=== PATIENT | female | born 1970 | race African-American/Black ===

== ENCOUNTER 2019-05-11 06:22 | Inpatient (IN) | payer OTHER ==
[2019-05-07 12:44] VITALS: BMI 36.6
[2019-05-11] MEDS ORDERED: MIDAZOLAM HCL 2 MG/2 ML SINGLE DOSE VIAL ONE ×3 (07:43→08:40)
[2019-05-11] MEDS ORDERED: SODIUM CHLORIDE 0.9% P/F 10 ML VIAL IJ ONE ×2 (07:43→09:27)
[2019-05-11] MEDS ORDERED: BUPIVACAINE LIPOSOME/PF (EXPAREL) 266 MG/20 ML VIAL ONE (07:43)
[2019-05-11] MEDS ORDERED: BUPIVACAINE HCL/PF 2.5 MG/ML - 30 ML VIAL IJ ONE ×2 (07:52→09:27)
[2019-05-11] MEDS ORDERED: SUCCINYLCHOLINE CHLORIDE 200 MG/10 ML VIAL ONE (08:20)
[2019-05-11] MEDS ORDERED: PROPOFOL 20 ML ONE ×4 (08:20→08:48)
[2019-05-11] MEDS ORDERED: ePHEDrine SULFATE 50 MG/1 ML AMPULE ONE (08:32)
[2019-05-11] MEDS ORDERED: ONDANSETRON 4 MG/2 ML VIAL ONE ×2 (08:33→12:23)
[2019-05-11] MEDS ORDERED: VANCOMYCIN 1,000 MG VIAL (RESTRICTED TO ID ONLY) ONE (08:33)
[2019-05-11] MEDS ORDERED: ceFAZolin SODIUM 1 GM VIAL ONE (08:33)
[2019-05-11] MEDS ORDERED: DEXAMETHASONE SOD PHOSPHATE 4 MG/1 ML VIAL ONE (08:33)
[2019-05-11] MEDS ORDERED: TRANEXAMIC ACID 1000 MG/10 ML VIAL ONE (08:33)
[2019-05-11] MEDS ORDERED: KETOROLAC TROMETHAMINE 60 MG/2 ML VIAL ONE (09:27)
[2019-05-11] MEDS ORDERED: EPINEPHrine 1:1,000 1 MG/1 ML - 30ML VIAL (INJECTION) ONE (09:27)
[2019-05-11] MEDS ORDERED: MORPHINE SULFATE 10 MG/1 ML *VIAL ONE (09:28)
[2019-05-11] MEDS ORDERED: BENZOIN/ALOE VERA/STORAX/TOLU 58 ML BOTTLE ONE (10:41)
[2019-05-11] MEDS ORDERED: FAMOTIDINE 20 MG PREMIXED IVPB IVPB ONE (11:35)
--- NOTE | 2019-05-11 11:38 | PN ---
Progress Note (short form) - Note Progress Note: 48F s/p RIGHT total knee replacement POD #0. -Pain control: per anaesthesia team. -DVT PPx: -Chemical: ASA 81mg PO BID x 6 weeks. -Mechanical: DENYS's, SCD's. -Incentive spirometry q15 min. -PT/OT/Rehab, OOB. -WBAT RLE; full range of motion right knee. -Post-op Ancef x 3 doses. -f/u post-op TOV: 8 hours max. -f/u AM labs. -f/u drain output. -Diet as tolerated. -Care per medical hospitalist: Dr. Huddleston. -Discharge planning: f/u [facility] [place] [facility] 05/17/2019; call for appointment . -Will follow. Bipin Rebollar MD (Orthopaedic Surgery).
[2019-05-11] MEDS ORDERED: FAMOTIDINE 20 MG/50 ML IVPB 20 MG/50 ML MG IVPB ONE ×2 (11:39→11:42)
--- NOTE | 2019-05-11 11:39 | OP ---
Operative Note - Note: Operative Date: 05/11/19 Pre-Operative Diagnosis: Right knee DJD Operation: Right TKA Implants: [employer]. Femur - 4. Tibia - 5. Poly - 9mm, PS. Patella - 27mm, symmetric Surgeon: Bipin Rebollar Steam Drier Tender: César Rebollar Anesthesiologist/LIVESTOCK DEALER: Dylan Royal Anesthesia: Spinal Specimens Removed: Bone, soft tissue Estimated Blood Loss (mls): 0 Drains & Tubes with Location: 1 x deep HemoVac Fluid Volume Replaced (mls): 1,100 (Crystalloid) Operative Report Dictated: Yes
[2019-05-11] MEDS ORDERED: MAGNESIUM HYDROX 2400MG/30ML ORAL SUSPENSION 30 ML CUP PO PRN (11:40)
[2019-05-11] MEDS ORDERED: ONDANSETRON 4 MG/2 ML VIAL IVPUSH PRN ×2 (11:40)
[2019-05-11] MEDS ORDERED: PROMETHAZINE HCL 25 MG/1 ML VIAL IVPUSH PRN (11:40)
[2019-05-11] MEDS ORDERED: MAG HYDROX/AL HYDROX/SIMETH 30 ML UNIT-DOSE CUP PO PRN (11:40)
[2019-05-11] MEDS ORDERED: oxyCODONE HCL 5 MG TABLET PO PRN (11:40)
[2019-05-11] MEDS ORDERED: LACTATED RINGERS SOLUTION 1,000 ML IV SCH (11:45)
[2019-05-11] MEDS ORDERED: ACETAMINOPHEN 325 MG TABLET (FP) PO SCH (11:45)
[2019-05-11] MEDS ORDERED: PATIENT'S OWN MEDICATION (NON-FORMULARY) (Cholecalciferol (Vitamin D3) [Vitamin D3] 10,000 PO SCH (11:45)
[2019-05-11] MEDS ORDERED: PANTOPRAZOLE 40 MG TABLET (FP) ONE (11:52)
[2019-05-11] MEDS ORDERED: PANTOPRAZOLE 40 MG TABLET (FP) PO ONE ×2 (12:00→15:27)
[2019-05-11] MEDS ORDERED: MAG HYDROX/AL HYDROX/SIMETH 30 ML UNIT-DOSE CUP PO ONE ×2 (12:05→15:27)
--- NOTE | 2019-05-11 16:02 | HP ---
Admitting History and Physical - Admission Chief Complaint: right knee pain History Source: Patient Limitations to Obtaining History: No Limitations - Past Medical History ...LMP Comment: STATES SHE IS MENOPAUSAL MORE THAN 1 YR - Smoking History Smoking history: Former smoker Have you smoked in the past 12 months: No If you are a former smoker, when did you quit?: 10 YRS AGO - Alcohol/Substance Use Hx Alcohol Use: Yes (OCCASIONALY) Home Medications - Allergies Allergies/Adverse Reactions: Allergies Allergy/AdvReac Type Severity Reaction Status Date / Time No Known Allergies Allergy Verified 05/11/19 07:12 - Home Medications Home Medications: Ambulatory Orders Calcium Carbonate/Vitamin D3 [Calcium 600-Vit D3 2,500 Sftgl] 1 each PO DAILY Cholecalciferol (Vitamin D3) [Vitamin D3] 10,000 unit PO ASDIR 05/07/19 Cyanocobalamin (Vitamin B-12) [Vitamin B-12] 1,000 mcg PO DAILY 05/07/19 Diltiazem [Cardizem -] 30 mg PO DAILY 05/07/19 Hydrochlorothiazide 25 mg PO DAILY 05/07/19 Omeprazole 20 mg PO DAILY 05/07/19 Metoprolol Succinate [Toprol Xl] 50 mg PO DAILY 05/11/19 Oxycodone HCl 5 mg PO PRN PRN 05/11/19 Review of Systems - Review of Systems Constitutional: reports: No Symptoms Eyes: reports: No Symptoms HENT: reports: No Symptoms Neck: reports: No Symptoms Cardiovascular: reports: No Symptoms Respiratory: reports: No Symptoms Gastrointestinal: reports: No Symptoms Genitourinary: reports: No Symptoms Musculoskeletal: reports: Joint Pain Integumentary: reports: No Symptoms Neurological: reports: No Symptoms Endocrine: reports: No Symptoms Hematology/Lymphatic: reports: No Symptoms Psychiatric: reports: No Symptoms Pain Intensity: 6 Physical Examination Vital Signs: Vital Signs Temperature 98.4 F 05/11/19 13:40 Pulse Rate 53 L 05/11/19 14:00 Respiratory Rate 18 05/11/19 14:00 Blood Pressure 90/50 L 05/11/19 14:00 O2 Sat by Pulse Oximetry (%) 100 05/11/19 13:40 Constitutional: Yes: Well Nourished, No Distress, Calm Eyes: Yes: WNL HENT: Yes: WNL Neck: Yes: WNL Cardiovascular: Yes: WNL Respiratory: Yes: WNL Gastrointestinal: Yes: WNL Renal/: Yes: WNL Musculoskeletal: Yes: Joint Stiffness Extremities: Yes: WNL Edema: No Peripheral Pulses WNL: Yes Integumentary: Yes: WNL Wound/Incision: Yes: Clean/Dry, Well Approximated Neurological: Yes: WNL ...Motor Strength: WNL Psychiatric: Yes: WNL Assessment/Plan 48F s/p RIGHT total knee replacement POD #0. cont pain management. incentive spirometry. discussed potential side effects of pain meds with pt. -ID: empirically covered with Ancef -HTN: cont toprol XL, HCTZ -advance diet as tolerated -PT/OT/OOB -AM labs ordered -assessment and plan discussed with pt -hopefully will DC in 48 hours if stable
[2019-05-11] MEDS: CEFAZOLIN 2 GM/D5W 2 GM/50 ML ML IVPB SCH ×2 (16:48→23:49)
[2019-05-11] MEDS: ACETAMINOPHEN 325 MG TABLET (FP) PO SCH (20:24)
--- NOTE | 2019-05-11 20:34 | OP ---
DATE OF OPERATION: 05/11/2019 SURGEON: Bipin Rebollar M.D. PARTY PLAN DEALER: César Rebollar M.D. PREOPERATIVE DIAGNOSIS: Tricompartment osteoarthritis right knee. POSTOPERATIVE DIAGNOSIS: Tricompartment osteoarthritis right knee. OPERATION: Right total knee arthroplasty ([place] posterior stabilized cemented total knee arthroplasty). ANESTHESIA: Peripheral nerve block. SPINAL ANESTHESIA: Conscious sedation. ANTIBIOTICS GIVEN: 2 g Kefzol, 1 g vancomycin preoperative; 1 g Kefzol at the end of the procedure. OPERATION DETAILS: The patient was correctly identified, brought in operating room. Right lower extremity was prepped, free draped in the routine manner with Betadine scrub solution, wiped off with alcohol, DuraPrep applied. Timeout was called. Imaging was available for intraoperative evaluation. The knee was flexed to 45 degrees. Skin incision was made centrally over the patella, extended proximally and distally. The subcutaneous dissection was facilitated by incising straight down to the quadriceps mechanism and then raising a flap on the medial side to expose the vastus medialis. The epimysium of the vastus medialis was lifted with sharp dissection off the muscle belly, extending all the way around to the intramuscular septum and linea aspera of the femur, and the fibers of vastus medialis dissected off the intermuscular septum working in the acute angle of the stripping angle of the fibers. This freed the muscle completely. A Hohmann was placed in the space between the suprapatellar pouch and the quadriceps muscle, and then the suprapatellar pouch was incised opening up the entire suprapatellar region. The suprapatellar soft tissue fat was all excised, exposing the femoral bed. Once performed, the knee was flexed, externally rotated. Tricompartment osteoarthritis noted clearly. The cruciate ligaments were transected. A blunt Hohmann placed behind the tibia, leaving the entire tibia forwards. A sharp Hohmann placed on the left side, exposing the tibial bed without any difficulty. The extramedullary jig alignment system of [employer] was applied to the tibia. The tibia was cut to neutral. The femoral component was then approached at the starter drill, inserting the drill into the bone bed biasing on the medial side of the intracondylar notch, at the insertion point of the posterior cruciate ligament. The starter drill was seated into the medullary bone bed. The sword and jig device set to 4 degrees of varus and +2 mm joint line resection just because of the preoperative fixed flexion deformity. The jig settings and measurements which were a size 4 femur, size 5 tibial tray measured, and a size 27-mm patellar button utilized. The patella was cut from utilizing Tiffanie line from patella ligament to quadriceps tendon, and the appropriate jig applied to the bone bed with the lugholes redrilled without any difficulty. The femur was completed with all the jig cuts made with the appropriate device. The alignment and flexion extension gaps were even at 9 mm. The menisci were resected, Bovie was utilized to resect the meniscal structures which were completely intact, indicating this is primary osteoarthritis of the knee. Once the femoral cuts were made, the trialing was performed, excellent anatomical alignment achieved. Once we were satisfied with this, the bone bed was thoroughly lavaged with saline and pulse lavaged. The cementing was in 1 stage, tibia then femur then patella. All extraneous cement was removed. Repeating the sizes, was a size 4 femur, size 5 tibia, and size 27-mm patellar button, and a size 9 posterior stabilized polyethylene liner inserted, which gave full range of motion on the table, complete stability in extension and flexion both in the coronal and sagittal planes, and shock testing with Lomeli instrument placed in the medial space to measure the tension turned out to be perfectly well maintained. Patella tracking was normal with a negative thumb . Wounds were again thoroughly lavaged, all extraneous cement had been removed. Closure was fascia and retinacular tissue with 1 Vicryl, subcutaneous 1 and 2-0 Vicryl, skin 3-0 Monocryl with Steri-Strips and drainage, one 18-inch Hemovac into the subvastus bed. This was a non-muscle splitting operation. Operation went well, no complications. MD SELMA Preciado/[id number]
[2019-05-11] MEDS: ASPIRIN 81 MG CHEWABLE TABLETS PO SCH (21:38)
[2019-05-11] MEDS: oxyCODONE HCL 10 MG SUSTAINED ACTING TABLET PO SCH (21:38)
[2019-05-11] MEDS: SENNOSIDES/DOCUSATE COMBO (SENNA PLUS) TABLET (UD) PO SCH (21:42)
[2019-05-11] MEDS: oxyCODONE HCL 5 MG TABLET PO PRN (23:51)
--- NOTE | 2019-05-12 00:21 | ED.PROV ---
Physicial Exam I saw and examined the patient. - Vital Signs Last Vital Signs Temp Pulse Resp BP Pulse Ox 97.9 F 63 18 115/70 96 05/11/19 23:00 05/11/19 23:00 05/11/19 23:00 05/11/19 23:00 05/11/19 23:05 - Physical Exam Reason for Response: 05/12/19 00:16 I was called to see Ms. Marquis s/p a near fall Pt is s/p Right knee replacement today She went to the bathroom approximately 1.5 hours ago As she stood to wipe herself, her right knee buckled She started to fall to the ground Per patient, she struck the right side of her thigh Pt the nurse who witnessed the incident, the patient never fell to the ground The patient was able to lift herself up without assistance Since that time, she had felt a pulling sensation in the right thigh Call placed to Dr Rebollar who did not recommend xray tonight He will order one for the morning The patient has sensation in the leg is able to lift the leg at the hip against gravity but this causes pain in the thigh she slightly bends the right knee can dorsi and plantar flex at the ankle 2+ DP, 2+ PT Drain emptied by nurse 50 cc (no significant increase in drain output) Pt asked to monitor for an increase in swelling, numbness, tingling, tightness, increased pain, any other concerns or complaints
[2019-05-12] MEDS: ACETAMINOPHEN 325 MG TABLET (FP) PO SCH ×3 (02:53→21:05)
[2019-05-12] MEDS: CEFAZOLIN 2 GM/D5W 2 GM/50 ML ML IVPB SCH (04:11)
[2019-05-12 08:27] LABS: HEMOGLOBIN 11.7 GM/dl (10.7-15.3); MCH 30.6 pg (25.7-33.7); MCHC 33.5 g/dl (32.0-36.0); MEAN CELL VOLUME 91.3 fl (80-96); MEAN PLT VOLUME 8.7 fl (7.5-11.1); PLATELET COUNT 238 K/MM3 (134-434); RBC 3.84 M/mm3 (3.60-5.2); WHITE BLOOD COUNT 10.1 K/mm3 (4.0-10.8)
[2019-05-12 08:38] LABS: CALCIUM 9.1 mg/dl (8.5-10); POTASSIUM 4.5 mmol/L (3.5-5.1)
[2019-05-12] MEDS ORDERED: PATIENT'S OWN MEDICATION (NON-FORMULARY) (Omeprazole [Omeprazole] 20 MG) PO SCH (10:00)
[2019-05-12] MEDS ORDERED: HYDROCHLOROTHIAZIDE 25 MG TABLET (FP) PO SCH (10:00)
[2019-05-12] MEDS: SENNOSIDES/DOCUSATE COMBO (SENNA PLUS) TABLET (UD) PO SCH ×2 (10:23→21:04)
[2019-05-12] MEDS: PANTOPRAZOLE 40 MG TABLET (FP) PO SCH (10:24)
[2019-05-12] MEDS: ASPIRIN 81 MG CHEWABLE TABLETS PO SCH ×2 (10:24→21:06)
[2019-05-12] MEDS: oxyCODONE HCL 10 MG SUSTAINED ACTING TABLET PO SCH ×2 (10:25→21:05)
[2019-05-12] MEDS: dilTIAZem HCL 30 MG TABLET (FP) PO SCH (10:26)
--- NOTE | 2019-05-12 12:36 | PN ---
Progress Note (short form) - Note Progress Note: 48F s/p RIGHT total knee replacement POD #1. Pain well controlled. No acute events overnight. Pt. denies overnight history of headaches, chest pain, shortness of breath, nausea, vomiting, chills, & sweats. (+) Voiding; (+) Flatus; (-) BM. Tolerating diet. (+) Walked in hallway. (+) Episode of right knee instability; will monitor. All labs and vitals reviewed. PE: AAO x 3, NAD. R-Knee: Dressing C/D/I. Drain intact, in place; output: 108cc/shift. NVI distally. 48F s/p RIGHT total knee replacement POD #1. -Pain control: per anaesthesia team. -DVT PPx: -Chemical: ASA 81mg PO BID x 6 weeks. -Mechanical: DENYS's, SCD's. -Incentive spirometry q15 min. -PT/OT/Rehab, OOB. -WBAT RLE; full range of motion right knee. -Post-op Ancef x 3 doses. -f/u AM labs. -f/u drain output. -Diet as tolerated. -Care per medical hospitalist: Dr. Huddleston. -Discharge planning: f/u [facility] [place] [facility] 05/17/2019; call for appointment . -Will follow. Bipin Rebollar MD (Orthopaedic Surgery).
--- NOTE | 2019-05-12 17:15 | PN ---
Progress Note, Physician Chief Complaint: 48F s/p RIGHT total knee replacement POD #1. - Current Medication List Current Medications: Active Medications Acetaminophen (Tylenol -) 650 mg PO Q6H [facility] Stop: 05/14/19 19:59 Last Admin: 05/12/19 08:00 Dose: 650 mg Al Hydroxide/Mg Hydroxide (Mylanta Oral Suspension -) 30 ml PO Q4H PRN PRN Reason: DYSPEPSIA Aspirin (Asa -) 81 mg PO BID [facility] Last Admin: 05/12/19 10:24 Dose: 81 mg Diltiazem HCl (Cardizem -) 30 mg PO DAILY [facility] Last Admin: 05/12/19 10:26 Dose: 30 mg Fentanyl (Sublimaze Injection -) 50 mcg IVPUSH [id number] PRN PRN Reason: PAIN-PACU ORDER X 4 DOSES ONLY Last Admin: 05/11/19 12:35 Dose: 50 mcg Magnesium Hydroxide (Milk Of Magnesia -) 30 ml PO PRN PRN PRN Reason: CONSTIPATION Metoprolol Succinate (Toprol Xl -) 25 mg PO DAILY [facility] Non-Formulary Medication (Cholecalciferol (Vitamin D3) [Vitamin D3]) 10,000 unit PO ASDIR [facility] Ondansetron HCl (Zofran Injection) 4 mg IVPUSH Q6H PRN PRN Reason: NAUSEA Oxycodone HCl (Roxicodone -) 5 mg PO Q3H PRN PRN Reason: PAIN LEVEL 1-5 Oxycodone HCl (Roxicodone -) 10 mg PO Q3H PRN PRN Reason: PAIN LEVEL 6-10 Last Admin: 05/11/19 23:51 Dose: 10 mg Oxycodone HCl (Oxycontin -) 10 mg PO BID [facility] Stop: 05/14/19 11:41 Last Admin: 05/12/19 10:25 Dose: 10 mg Pantoprazole Sodium (Protonix -) 40 mg PO DAILY [facility] Last Admin: 05/12/19 10:24 Dose: 40 mg Promethazine HCl (Phenergan Injection -) 12.5 mg IVPUSH Q6H PRN PRN Reason: NAUSEA-FOR RESCUE AFTER 15 MIN Senna/Docusate Sodium (Pericolace -) 2 tablet PO BID [facility] Last Admin: 05/12/19 10:23 Dose: 2 tablet - Objective Vital Signs: Vital Signs Temperature 97.9 F 05/12/19 16:17 Pulse Rate 58 L 05/12/19 16:17 Respiratory Rate 18 05/12/19 16:17 Blood Pressure 97/45 L 05/12/19 16:17 O2 Sat by Pulse Oximetry (%) 94 L 05/12/19 16:17 Constitutional: Yes: Well Nourished, No Distress, Calm Eyes: Yes: WNL HENT: Yes: WNL Neck: Yes: WNL Cardiovascular: Yes: WNL Respiratory: Yes: WNL Gastrointestinal: Yes: WNL Genitourinary: Yes: WNL Musculoskeletal: Yes: Joint Stiffness Extremities: Yes: WNL Edema: No Peripheral Pulses WNL: Yes Integumentary: Yes: WNL Wound/Incision: Yes: Clean/Dry, Well Approximated, Dressing Dry and Intact Neurological: Yes: WNL ...Motor Strength: WNL Psychiatric: Yes: WNL Labs: CBC, BMP 05/12/19 07:33 05/12/19 07:33 Assessment/Plan 48F s/p RIGHT total knee replacement POD #1. cont pain management. incentive spirometry. discussed potential side effects of pain meds with pt. -ID: empirically covered with Ancef -hypotension with bradycardia: medication induced? toprol XL dose got to 25 mg daily. HCTZ DC'd as pt is in a negative fluid balance. cont diltiazem for now. -advance diet as tolerated -PT/OT/OOB -AM labs ordered -assessment and plan discussed with pt and family at bedside. -hopefully will DC home tomorrow if stable
[2019-05-12] MEDS: oxyCODONE HCL 5 MG TABLET PO PRN (21:06)
[2019-05-13] MEDS: ACETAMINOPHEN 325 MG TABLET (FP) PO SCH ×4 (02:00→13:30)
[2019-05-13 08:50] LABS: HEMATOCRIT 33.5 % (32.4-45.2); HEMOGLOBIN 11.3 GM/dl (10.7-15.3); MCH 30.6 pg (25.7-33.7); MCHC 33.8 g/dl (32.0-36.0); MEAN CELL VOLUME 90.8 fl (80-96); MEAN PLT VOLUME 9.1 fl (7.5-11.1); PLATELET COUNT 247 K/MM3 (134-434); RBC 3.69 M/mm3 (3.60-5.2); RDW 13.5 % (11.6-15.6); WHITE BLOOD COUNT 10.6 K/mm3 (4.0-10.8)
[2019-05-13] MEDS: dilTIAZem HCL 30 MG TABLET (FP) PO SCH (09:18)
[2019-05-13] MEDS: oxyCODONE HCL 10 MG SUSTAINED ACTING TABLET PO SCH (09:18)
[2019-05-13] MEDS: PANTOPRAZOLE 40 MG TABLET (FP) PO SCH (09:19)
[2019-05-13] MEDS: ASPIRIN 81 MG CHEWABLE TABLETS PO SCH (09:19)
[2019-05-13] MEDS: SENNOSIDES/DOCUSATE COMBO (SENNA PLUS) TABLET (UD) PO SCH (09:19)
[2019-05-13] MEDS ORDERED: metoPROLOL SUCCINATE 25 MG TAB.SR.24H (FP) PO SCH (10:00)
--- NOTE | 2019-05-13 11:05 | DS ---
Physical Examination Vital Signs: Vital Signs Temperature 98.4 F 05/13/19 09:15 Pulse Rate 65 05/13/19 09:15 Respiratory Rate 18 05/13/19 09:15 Blood Pressure 105/57 L 05/13/19 09:15 O2 Sat by Pulse Oximetry (%) 96 05/13/19 09:15 Constitutional: Yes: Well Nourished, No Distress, Calm Eyes: Yes: WNL HENT: Yes: WNL Neck: Yes: WNL Cardiovascular: Yes: WNL Respiratory: Yes: WNL Gastrointestinal: Yes: WNL Renal/: Yes: WNL Musculoskeletal: Yes: Joint Stiffness Extremities: Yes: WNL Edema: No Peripheral Pulses WNL: Yes Integumentary: Yes: WNL Wound/Incision: Yes: Clean/Dry, Well Approximated Neurological: Yes: WNL ...Motor Strength: WNL Psychiatric: Yes: WNL Labs: CBC, BMP 05/13/19 08:00 05/12/19 07:33 Discharge Summary Reason For Visit: BILATERAL OSTEOARTHRITIS OF KNEES Hospital Course: 48F s/p RIGHT total knee replacement POD #2. cont pain management. incentive spirometry. discussed potential side effects of pain meds with pt. -ID: empirically covered with Ancef Condition: Good - Instructions Diet, Activity, Other Instructions: Dr. Rebollar Discharge Instructions for Knee Replacement Post Operative Instructions Physical activity Physical Therapist will come to your home for the first 5 days. You will be set up with outpatient PT at your first post-operative visit. Use assistive devices for ambulation at all times. Weight bearing as tolerated on your surgical side. Do not put pillow under knee. May put pillow under heel. Wound care Leave your surgical dressing in place. Do not change the dressing until seen by your surgeon in the office. No baths or showers. Do not submerge your incision. Do not apply any ointments or lotions to your incision. Please call the office if your dressing is soiled/dirty or is falling off. Apply Graduated Compression Stockings (TEDS) to both lower extremities - remove daily for hygiene ONLY. Diet There are no dietary restrictions. Eat healthy, high-fiber foods. Drink 6 to 8 glasses of liquid each day. This will assist in keeping your bowels are regular. Pain management Any pain prescription medication ordered should be taken as prescribed for moderate to severe pain. Do not take additional Tylenol while taking Percocet. Take Aspirin 81 mg two times a day for a total of 6 weeks to prevent blood clots. Call Dr. Rebollar for any of the following: Severe pain not relieved by medication Fever of 101 or higher Excessive bleeding or drainage on dressing Inability to urinate If you experience chest pain or shortness of breath, please seek emergency care immediately. Please call the office at to confirm your post-op appointment for the week following surgery. Disposition: HOME - Home Medications Comprehensive Discharge Medication List: Ambulatory Orders Calcium Carbonate/Vitamin D3 [Calcium 600-Vit D3 2,500 Sftgl] 1 each PO DAILY Cholecalciferol (Vitamin D3) [Vitamin D3] 10,000 unit PO ASDIR 05/07/19 Cyanocobalamin (Vitamin B-12) [Vitamin B-12] 1,000 mcg PO DAILY 05/07/19 Diltiazem [Cardizem -] 30 mg PO DAILY 05/07/19 Hydrochlorothiazide 25 mg PO DAILY 05/07/19 Omeprazole 20 mg PO DAILY 05/07/19 Metoprolol Succinate [Toprol Xl] 50 mg PO DAILY 05/11/19 Oxycodone HCl 5 mg PO PRN PRN 05/11/19
--- NOTE | 2019-05-13 12:24 | PN ---
Progress Note (short form) - Note Progress Note: 48F s/p RIGHT total knee replacement POD#2 Pain well controlled. No acute events overnight. Pt. denies overnight history of headaches, chest pain, shortness of breath, nausea, vomiting, chills, & sweats. (+) Voiding; (+) Flatus; (-) BM. Tolerating diet. (+) Walked in hallway. All labs and vitals reviewed. PE: AAO x 3, NAD. R-Knee: Dressing C/D/I.Drain removed NVI distally. 48F s/p RIGHT total knee replacement POD #1. -Pain control: per anaesthesia team. -DVT PPx: -Chemical: ASA 81mg PO BID x 6 weeks. -Mechanical: DENYS's, SCD's. -Diet as tolerated. -Care per medical hospitalist: Dr. Huddleston. -Discharge home: f/u [facility] [place] Office 05/17/2019; call for appointment . -Will follow. Bipin Rebollar MD (Orthopaedic Surgery).
[2019-05-13 14:18] VITALS: BP 119/78; PULSE 56; TEMP 98.2
--- NOTE | 2019-05-16 16:13 | PATH ---
Surgical Pathology Report Patient Name: DOMINGO HURT Med. Rec. #: [id number] /Age/Gender: 1970 (Age: 48) / F Account: [id number] Location: [facility] Taken: 05/11/2019 Received: 05/11/2019 Reported: 05/16/2019 Physicians: Bipin Rebollar M.D. Specimen(s) Received RIGHT KNEE BONE Clinical History Right knee osteoarthritis Final Diagnosis BONE, RIGHT KNEE, TOTAL KNEE REPLACEMENT: DEGENERATIVE JOINT DISEASE. Electronically Signed Jonna Youssef M.D. Gross Description Received in formalin labeled "right knee bone," is a 12.5 x 11.0 x 2.5 cm aggregate of multiple portions of bone and soft tissue. The tibial plateau measures 7.9 x 5.8 x 1.6 cm. There are multiple areas of eburnation present, measuring up to 3.0 cm in greatest dimension. The remaining articular surfaces are camargo-yellow and focally granular. The underlying trabecular bone is yellow and hard. Silver Recovery Operator sections are submitted in one cassette, following decalcification. 05/15/2019 [facility]05/15/2019
== END 2019-05-13 14:15 | disposition home health service (06) | DRG 470 ==
LOC: FM/S 06:22
PROVIDERS: ADMIT Orthopaedic Surgery Orthopaedic Surgery of the Spine; ATTEND Internal Medicine
PROC: 0SRC0J9 Replacement of Right Knee Joint with Synthetic Substitute, Cemented, Open Approach (ICD-10-PCS; principal; 2019-05-11 09:10)
DX: M17.11 Unilateral primary osteoarthritis, right knee (principal); Z87.891 Personal history of nicotine dependence; S79.821A Other specified injuries of right thigh, initial encounter; X58.XXXA Exposure to other specified factors, initial encounter; Y93.89 Activity, other specified; Y92.231 Patient bathroom in hospital as the place of occurrence of the external cause; Y99.8 Other external cause status
CPT/HCPCS: 36415; 73560-TC-RT-FY; 80048; 85027; 88304-TC; 88311-TC; 94760; 97116-GP; 97162-GP